=== PATIENT | female | born 1950 ===

== ENCOUNTER 2018-05-01 00:53 | Emergency (ER) | payer OTHER ==
[~2018-05-01] VITALS: Ht 160 cm; Wt 96.2 kg
[~2018-05-01 00:53] MED LIST: DOLOGEN CAPLET1 EACH PO; GLUCOPHAGE XR500 MG PO; JANUMET 50-1,1 UDTAB; JANUVIA50 MG; LOTREL 10-20 MG1 CAP; LOTREL 5-20 MG1 CAP PO; MEDROL4 MG PO; NABUMETONE750 MG PO; ORPH100T PO; [UNRECOGNIZED DRUG - OTHER]
[2018-05-01] MEDS ORDERED: KETO10TA2 PO (08:12)
[2018-05-01] MEDS ORDERED: ORPHENADRINE C100 MG PO (08:12)
== END 2018-05-01 09:03 | disposition home or self-care (01) ==
LOC: ER 00:53
DX: R07.89 Other chest pain (principal); M94.0 Chondrocostal junction syndrome [Tietze]